=== PATIENT | female | born 1995 | race Caucasian/White ===

== ENCOUNTER 2021-02-08 11:33 | Emergency (ER) | payer OTHER ==
[~2021-02-08] VITALS: Ht 177.8 cm; Wt 34.1 kg
[2021-02-08] MEDS ORDERED: FLUO20CA22 PO (11:39)
[2021-02-08] MEDS ORDERED: ADV250INH INH (11:39)
[2021-02-08 12:32] VITALS: BP 110/73
[2021-02-08 13:21] LABS: BASO % 0.6 % (0.0-1.0); EOS # 0.1 10^3/uL (0.0-0.5); EOS % 2.2 % (0.0-3.0); HEMATOCRIT 38.3 % (36.0-47.0); HEMOGLOBIN 12.4 g/dl (12.0-15.5); LYMPH # 1.6 10^3/uL (1.5-5.0); LYMPH % 30.2 % (24.0-44.0); MEAN CORPUSCULAR HEMOGLOBIN 31.3 pg (27.0-33.0); MEAN CORPUSCULAR HGB CONC 32.4 g/dl (32.0-36.5); MEAN CORPUSCULAR VOLUME 96.7 fl (80.0-96.0); MONO # 0.4 10^3/uL (0.0-0.8); MONO % 8.1 % (2.0-8.0); NEUTROPHILS # 3.2 10^3/uL (1.5-8.5); NEUTROPHILS % 58.7 % (36.0-66.0); PLATELET COUNT, AUTOMATED 191 10^3/uL (150-450); RED BLOOD COUNT 3.96 10^6/uL (4.00-5.40); WHITE BLOOD COUNT 5.4 10^3/uL (4.0-10.0)
[2021-02-08 13:50] LABS: HCG, SERUM QUALITATIVE NEGATIVE (NEGATIVE)
[2021-02-08 13:58] LABS: BLOOD UREA NITROGEN 9 MG/DL (7-18); CALCIUM LEVEL 9.3 MG/DL (8.5-10.1); CARBON DIOXIDE LEVEL 29 MEQ/L (21-32); CHLORIDE LEVEL 108 MEQ/L (98-107); CREATININE FOR GFR 0.69 MG/DL (0.55-1.30); GLOMERULAR FILTRATION RATE > 60.0 (>60); GLUCOSE, FASTING 85 MG/DL (70-100); POTASSIUM SERUM 4.4 MEQ/L (3.5-5.1); SODIUM LEVEL 141 MEQ/L (136-145)
--- NOTE | 2021-02-09 08:08 | ECGEPIP ---
[facility] - ED Test Date: 2021-02-08 Pat Name: MONSE MCCULLOUGH Department: Room: - Gender: Female Director Of Business Systems: : 1995 Requested By: Nini Mills Order Number: [id number] Reading MD: Vineet Heath Measurements Intervals [place] Rate: 57 P: 24 OK: 112 QRS: 83 QRSD: 88 T: 48 QT: 408 QTc: 397 Interpretive Statements Sinus bradycardia BENIGN EARLY REPOLARIZATION NO PRIORS FOR COMPARISON Electronically Signed on 02-09-2021 8:07:48 EDT by Vineet Heath
== END 2021-02-08 14:48 | disposition home or self-care (01) ==
LOC: M ED 11:33
DX: R55 Syncope and collapse (principal); R00.1 Bradycardia, unspecified; J45.909 Unspecified asthma, uncomplicated; F41.9 Anxiety disorder, unspecified